=== PATIENT | male | born 1965 | race Caucasian/White ===

== ENCOUNTER 2020-05-12 10:23 | Outpatient (REF) | payer OTHER, SELFPAY ==
[2020-05-12 15:58] LABS: ALT 37 U/L (16-63); AST 20 U/L (15-37); Albumin 3.8 g/dL (3.4-5.0); Alkaline Phosphatase 54 U/L (46-116); Anion Gap 10.8 mmol/L (3-11); BUN 17 mg/dL (7-18); Bilirubin, Total 0.3 mg/dL (0.2-1.0); CO2 26.2 mmol/L (21.0-32.0); Calcium 8.7 mg/dL (8.5-10.1); Calculated LDL 151 mg/dL (<100); Chloride 104 mmol/L (98-107); Cholesterol 212 mg/dL (<200); Glucose 97 mg/dL (74-106); HDL Cholesterol 26 mg/dL (40-60); Potassium 4.5 mmol/L (3.5-5.1); Sodium 141 mmol/L (136-145); Total Protein 7.1 g/dL (6.4-8.2); Triglyceride 178 mg/dL (<150)
== END 2020-05-12 10:24 | disposition home or self-care (01) ==
LOC: NCHCN 10:23
PROVIDERS: Visit Provider Physician Assistant
DX: E78.5 Hyperlipidemia, unspecified (principal)
CPT/HCPCS: 80053; 80061

== ENCOUNTER 2022-08-24 18:53 | Outpatient (REF) | payer OTHER, SELFPAY ==
[2022-08-24 19:20] LABS: Bacteria Negative HPF (Negative); C & S Indicated? No; Casts Negative LPF (Negative); Crystals Negative HPF (Negative); Epithelial Cells Rare HPF (Negative); Mucus Negative (Negative); RBC 0-2 HPF (0-2); WBC 0-2 HPF (0-5)
== END 2022-08-24 18:54 | disposition home or self-care (01) ==
LOC: NCHCN 18:53
PROVIDERS: Visit Provider Physician Assistant
DX: R31.21 Asymptomatic microscopic hematuria (principal)
CPT/HCPCS: 81015

== ENCOUNTER 2023-03-15 20:37 | Outpatient (REF) | payer OTHER, SELFPAY ==
[2023-03-15 18:37] LABS: ALT 27 U/L (16-63); AST 14 U/L (15-37); Albumin 3.8 g/dL (3.4-5.0); Alkaline Phosphatase 44 U/L (46-116); Anion Gap 2.3 mmol/L (3-11); BUN 17 mg/dL (7-18); Bilirubin, Total 0.6 mg/dL (0.2-1.0); CO2 31.7 mmol/L (21.0-32.0); CREATININE 1.2 mg/dL (0.70-1.30); Calcium 9.3 mg/dL (8.5-10.1); Calculated LDL 186 mg/dL (<100); Chloride 103 mmol/L (98-107); Cholesterol 251 mg/dL (<200); Glucose 116 mg/dL (74-106); HDL Cholesterol 49 mg/dL (40-60); Potassium 4.9 mmol/L (3.5-5.1); Sodium 137 mmol/L (136-145); Total Protein 7.6 g/dL (6.4-8.2); Triglyceride 83 mg/dL (<150)
== END 2023-03-15 20:38 | disposition home or self-care (01) ==
LOC: NCHCN 20:37
PROVIDERS: Visit Provider Internal Medicine
DX: I10 Essential (primary) hypertension (principal)
CPT/HCPCS: 80053; 80061

== ENCOUNTER 2024-01-28 15:33 | Outpatient (REF) | payer OTHER, SELFPAY ==
[2024-01-28 20:36] LABS: ALT 41 U/L (16-63); AST 26 U/L (15-37); Albumin 3.7 g/dL (3.4-5.0); Alkaline Phosphatase 58 U/L (46-116); Anion Gap 11.7 mmol/L (3-11); BUN 17 mg/dL (7-18); Bilirubin, Total 0.69 mg/dL (0.2-1.0); CO2 26.3 mmol/L (21.0-32.0); CREATININE 1.2 mg/dL (0.70-1.30); Calcium 9.4 mg/dL (8.5-10.1); Chloride 104 mmol/L (98-107); Estimated GFR 69.66 (mL/min/1.73m2); Glucose 102 mg/dL (74-106); Potassium 3.9 mmol/L (3.5-5.1); Sodium 142 mmol/L (136-145); Total Protein 7.7 g/dL (6.4-8.2)
[2024-01-29 19:15] LABS: HIV-1/2 Ag & Ab Screen Negative (Negative)
[2024-01-29 19:18] LABS: Hepatitis C Ab w Rflx HCV PCR Negative (Negative)
== END 2024-01-28 15:34 | disposition home or self-care (01) ==
LOC: NCHCN 15:33
PROVIDERS: Visit Provider Physician Assistant
DX: Z11.4 Encounter for screening for human immunodeficiency virus [HIV] (principal); Z11.59 Encounter for screening for other viral diseases
CPT/HCPCS: 80053; 86803; 87389